=== PATIENT | male | born 1985 | race Caucasian/White ===

== ENCOUNTER 2017-11-07 00:17 | Inpatient (IN) | payer SELFPAY ==
[~2017-11-07] VITALS: Ht 180.3 cm; Wt 101.6 kg
--- NOTE | 2017-11-07 00:26 | PHYS DOC ---
Adult General HPI HPI Patient is a 32 year old male who presents with acute alcohol intoxication. History is limited secondary to patient's acute intoxication and EMS is the primary historian. [place] and then vomiting on himself. Upon arrival to the emergency department his GCS is 14, he is yelling, at times laughing, at times not cooperative. Review of Systems Review of Systems Unable to complete review of systems due to patient intoxication. Current Medications Current Medications Current Medications Medications (Trade) Dose Ordered Sig/Francisco Start Time Stop Time Status Last Admin Dose Admin Sodium Chloride 1,000 ml @ 1,000 mls/hr 1X ONCE 11/07/17 00:45 11/07/17 02:40 DC 11/07/17 00:45 1,000 MLS/HR Ziprasidone (Geodon Im) 10 mg 1X ONCE 11/07/17 01:00 11/07/17 01:01 DC 11/07/17 01:30 10 MG Allergies Allergies Allergies Coded Allergies Type Severity Reaction Last Updated Verified haloperidol Allergy Intermediate jaw locks up 11/07/17 No Physical Exam Physical Exam Constitutional: Well developed, well nourished, no acute distress, non-toxic appearance. [] HENT: Normocephalic, atraumatic, bilateral external ears normal, oropharynx moist, no oral exudates, nose normal. [] Eyes: PERRLA, EOMI, conjunctiva normal, no discharge. [] Neck: Normal range of motion, no tenderness, supple, no stridor. [] Cardiovascular:Heart rate regular rhythm, no murmur [] Lungs & Thorax: Bilateral breath sounds clear to auscultation [] Abdomen: Bowel sounds normal, soft, no tenderness, no masses, no pulsatile masses. [] Skin: Warm, dry, no erythema, no rash. [] Back: No tenderness, no CVA tenderness. [] Extremities: No tenderness, no cyanosis, no clubbing, ROM intact, no edema. [] Neurologic: Alert and oriented X 3, normal motor function, normal sensory function, no focal deficits noted. [] Psychologic: Affect normal, judgement normal, mood normal. [] Current Patient Data Vital Signs Vital Signs Date Time Temp Pulse Resp B/P (MAP) Pulse Ox O2 Delivery O2 Flow Rate FiO2 11/07/17 02:56 90 16 116/53 (74) 93 Room Air Lab Values Laboratory Tests Test 11/07/17 00:35 White Blood Count 16.0 x10^3/uL (4.0-11.0) H Red Blood Count 5.17 x10^6/uL (4.30-5.70) Hemoglobin 15.7 g/dL (13.0-17.5) Hematocrit 46.1 % (39.0-53.0) Mean Corpuscular Volume 89 fL (79-100) Mean Corpuscular Hemoglobin 30 pg (25-35) Mean Corpuscular Hemoglobin Concent 34 g/dL (31-37) Red Cell Distribution Width 13.1 % (11.5-14.5) Platelet Count 395 x10^3/uL (140-400) Neutrophils (%) (Auto) 58 % (31-73) Lymphocytes (%) (Auto) 30 % (24-48) Monocytes (%) (Auto) 7 % (0-9) Eosinophils (%) (Auto) 4 % (0-3) H Basophils (%) (Auto) 1 % (0-3) Neutrophils # (Auto) 9.3 x10^3uL (1.8-7.7) H Lymphocytes # (Auto) 4.7 x10^3/uL (1.0-4.8) Monocytes # (Auto) 1.2 x10^3/uL (0.0-1.1) H Eosinophils # (Auto) 0.7 x10^3/uL (0.0-0.7) Basophils # (Auto) 0.1 x10^3/uL (0.0-0.2) Segmented Neutrophils % 51 % (35-66) Band Neutrophils % 4 % (0-9) Lymphocytes % 39 % (24-48) Monocytes % 3 % (0-10) Eosinophils % 1 % (0-5) Myelocytes % 2 % (0-0) H Platelet Estimate Adequate (ADEQUATE) Sodium Level 139 mmol/L (136-145) Potassium Level 3.8 mmol/L (3.5-5.1) Chloride Level 101 mmol/L (98-107) Carbon Dioxide Level 12 mmol/L (21-32) L Anion Gap 26 (6-14) H Blood Urea Nitrogen 6 mg/dL (8-26) L Creatinine 1.1 mg/dL (0.7-1.3) Estimated GFR (Cockcroft-Gault) 77.6 BUN/Creatinine Ratio 5 (6-20) L Glucose Level 137 mg/dL (70-99) H Calcium Level 9.3 mg/dL (8.5-10.1) Total Bilirubin 0.3 mg/dL (0.2-1.0) Aspartate Amino Transferase (AST) 77 U/L (15-37) H Alanine Aminotransferase (ALT) 192 U/L (16-63) H Alkaline Phosphatase 99 U/L (46-116) Total Protein 9.0 g/dL (6.4-8.2) H Albumin 4.7 g/dL (3.4-5.0) Albumin/Globulin Ratio 1.1 (1.0-1.7) Acetaminophen Level < 2 mcg/ml (10-30) L Acetaminophen Last Dose Date Acetaminophen Last Dose Time Ethyl Alcohol Level 176 mg/dL (0-10) H Laboratory Tests 11/07/17 00:35 Laboratory Tests 11/07/17 00:35 EKG EKG [] Radiology/Procedures Radiology/Procedures [] Impressions: Acute alcohol intoxication Suicidal ideation Vomiting Altered mental status Course & Med Decision Making Course & Med Decision Making Pertinent Labs and Imaging studies reviewed. (See chart for details) 12:59 AM. Patient states that he is suicidal to nursing staff. Physician: Patient admitted to Dr. Barney's service Catarino Disclaimer Catarino Disclaimer This electronic medical record was generated, in whole or in part, using a voice recognition dictation system. Departure Departure Impression: Primary Impression: Acute alcohol intoxication Additional Impressions: Vomiting Altered mental status Suicidal ideations Disposition: ADMITTED INPATIENT Condition: STABLE Problem Qualifiers BROOKLYN REYES DO Nov 07, 2017 00:26
[2017-11-07] MEDS ORDERED: IV NORMAL SALINE 1000ML BAG 1,000 ML IV ONE ×2 (00:45→10:45)
[2017-11-07] MEDS ORDERED: ZIPRASIDONE IM 20 MG VIAL. IM ONE (01:00)
[2017-11-07 01:04] LABS: BASO # 0.1 x10^3/uL (0.0-0.2); BASO % 1 % (0-3); EOS # 0.7 x10^3/uL (0.0-0.7); EOS % 4 % (0-3); HEMATOCRIT 46.1 % (39.0-53.0); HEMOGLOBIN 15.7 g/dL (13.0-17.5); LYMPH # 4.7 x10^3/uL (1.0-4.8); LYMPH % 30 % (24-48); MEAN CORPUSCULAR HEMOGLOBIN 30 pg (25-35); MEAN CORPUSCULAR HGB CONC 34 g/dL (31-37); MEAN CORPUSCULAR VOLUME 89 fL (79-100); MONO # 1.2 x10^3/uL (0.0-1.1); MONO % 7 % (0-9); NEUT # 9.3 x10^3uL (1.8-7.7); NEUT % 58 % (31-73); PLATELET COUNT 395 x10^3/uL (140-400); RED BLOOD COUNT 5.17 x10^6/uL (4.30-5.70); RED CELL DISTRIBUTION WIDTH 13.1 % (11.5-14.5)
[2017-11-07 01:15] LABS: CALCIUM 9.3 mg/dL (8.5-10.1); CREATININE 1.1 mg/dL (0.7-1.3); GFR 77.6; POTASSIUM 3.8 mmol/L (3.5-5.1)
[2017-11-07 01:18] LABS: ETHANOL 176 mg/dL (0-10)
[2017-11-07 01:19] LABS: ACETAMIN < 2 mcg/ml (10-30)
[2017-11-07 01:20] LABS: ALBUMIN 4.7 g/dL (3.4-5.0); ALBUMIN/GLOBULIN RATIO 1.1 (1.0-1.7); TOTAL BILIRUBIN 0.3 mg/dL (0.2-1.0)
[2017-11-07 02:31] LABS: % BANDS 4 % (0-9); % EOS 1 % (0-5); % LYMPHS 39 % (24-48); % MONOS 3 % (0-10); % MYELOS 2 % (0-0); % SEGS 51 % (35-66); PLT ESTIMATE ADEQUATE (ADEQUATE)
[2017-11-07] MEDS ORDERED: IV RINGERS,LACTATED 1000ML 1,000 ML IV ONE (03:30)
[2017-11-07] MEDS ORDERED: ONDANSETRON PF 4 MG/2 ML VIAL. IV PRN ×2 (03:30→09:30)
[2017-11-07 04:30] VITALS: BP 127/53
[2017-11-07 07:00] VITALS: BP 122/70
[2017-11-07] MEDS ORDERED: IBUPROFEN 600 MG TABLET. PO PRN (09:30)
[2017-11-07] MEDS ORDERED: HALOPERIDOL LACTATE 5 MG/ML VIAL. IVP PRN (09:30)
[2017-11-07] MEDS ORDERED: CALCIUM CARBONATE 500 MG TAB.CHEW PO PRN (09:30)
[2017-11-07] MEDS ORDERED: chlordiazePOXIDE HCL 25 MG CAPSULE PO PRN (09:30)
[2017-11-07] MEDS ORDERED: HYDROcodone/APAP 5/325MG 1 TAB TABLET PO PRN (09:30)
[2017-11-07] MEDS ORDERED: MULTIVIT INFUSN,ADULT 4,VIT K 10 ML, THIAMINE 100 MG, FOLIC ACID 1 MG in IV NORMAL SALI... IV ONE (10:00)
--- NOTE | 2017-11-07 10:39 | PDOC1 ---
History and Physical Date of Admission Date of Admission DATE: 11/07/17 TIME: 10:33 Identification/Chief Complaint Chief Complaint Alcohol intoxication, suicidal ideation Source Source: Caregiver, Chart review, Patient History of Present Illness History of Present Illness 32-year-old male with history of PTSD per documentation, also suicidal ideation, last one was one week ago when he attempted to strangulate himself, also alcohol dependence, in an inpatient alcohol rehabilitation program at [facility]. IS actually scheduled to go inpatient right now at [address] order tomorrow, admitted because of etoh intoxication. AST elevated at 77, ALT elevated 137. Increased anion gap of 26, reactive leukocytosis 16 likely, shaking still, but no emesis. KEotnes on urine likely from etoh. Wants to go home and cleared by RADKALYN to meet his appointment later [address] [place] I am bolusing banana bag and some fluids to help with that gap acidosis. I am requesting him to sign the AMA because I am treating blindly the gap acidosis with no repeat labs later as he is in a [place]. He does not want to Miss his court order tmr either. HE has major depression, on unrecalled anti depressants he takes bID. Sitter at bedside Past Medical History Psych: Depression Past Surgical History Past Surgical History: No pertinent history Family History Family History: No Significant Social History Smoke: No ALCOHOL: heavy Drugs: None Current Problem List Problem List Problems Medical Problems: (1) Acute alcohol intoxication Status: Acute (2) Altered mental status Status: Acute (3) Suicidal ideations Status: Acute (4) Vomiting Status: Acute Current Medications Current Medications Current Medications Ziprasidone (Geodon Im) 10 mg 1X ONCE IM Last administered on 11/07/17at 01:30 ; Start 11/07/17 at 01:00; Stop 11/07/17 at 01:01; Status DC Sodium Chloride 1,000 ml @ 1,000 mls/hr 1X ONCE IV Last administered on at 00:45; Start 11/07/17 at 00:45; Stop 11/07/17 at 02:40; Status DC Ondansetron HCl (Zofran) 4 mg PRN Q8HRS PRN IV NAUSEA/VOMITING; Start 11/07/17 at 03:30; Stop 11/07/17 at 09:28; Status DC Ringer's Solution 1,000 ml @ 1,000 mls/hr 1X ONCE IV Last administered on 01/14at 03:32; Start 11/07/17 at 03:30; Stop 11/07/17 at 04:29; Status DC Ondansetron HCl (Zofran) 4 mg PRN Q6HRS PRN IV NAUSEA/VOMITING; Start 11/07/17 at 09:30 Ibuprofen (Motrin) 600 mg PRN Q6HRS PRN PO INFLAMMATION; Start 11/07/17 at 09: 30 Acetaminophen/ Hydrocodone Bitart (Lortab 5/325) 1 tab PRN Q4HRS PRN PO PAIN; Start 11/07/17 at 09:30 Chlordiazepoxide (Librium) 25 mg PRN Q6HRS PRN PO ANXIETY / AGITATION; Start at 09:30 Multivitamins 10 ml/Thiamine HCl 100 mg/Folic Acid 1 mg/Sodium Chloride 1,011.2 ml @ 1,000.088 mls/hr 1X ONCE IV Last administered on 11/07/17at 10:19; Start 11/07/17 at 10:00; Stop 11/07/17 at 11:00 Sodium Chloride 1,000 ml @ 125 mls/hr Q8H IV ; Start 11/07/17 at 11:00 Thiamine Mononitrate (Vitamin B-1) 100 mg DAILY PO ; Start 11/08/17 at 09:00 Folic Acid (Folic Acid) 1 mg DAILY PO ; Start 11/08/17 at 09:00 Multivitamins (Thera M Plus) 1 tab DAILY PO ; Start 11/08/17 at 09:00 Haloperidol Lactate (Haldol Inj) 5 mg PRN Q6HRS PRN IVP AGITATION; Start at 09:30; Status UNV Lorazepam (Ativan) 2 mg PRN Q4HRS PRN IV ANXIETY / AGITATION Last administered on 11/07/17at 10:21; Start 11/07/17 at 09:30 Calcium Carbonate/ Glycine (Tums) 500 mg PRN AFTMEALHC PRN PO INDIGESTION; Start 11/07/17 at 09:30 Allergies Allergies: Coded Allergies: haloperidol (Unverified Allergy, Intermediate, jaw locks up, 11/07/17) ROS Review of System A 14 point ROS was completed with the following noted as positive: Other systems reviewed and negative. \CONSTITUTIONAL: No fever or chills EYES: No recent changes SKIN: No rash or itching CARDIOVASCULAR: No chest pain, syncope, palpitations, or edema RESPIRATORY: No SOB or cough GASTROINTESTINAL: No nausea, vomiting or abdominal pain NEUROLOGICAL: No headaches or weakness ENDOCRINE: No cold or heat intolerance GENITOURINARY: No urgency or frequency of urination MUSCULOSKELETAL: No back pain or joint pain LYMPHATICS: No enlarged lymph nodes PSYCHIATRIC: No anxiety or depression Physical Exam General: Alert, Oriented X3, Cooperative, Other (rigidity, rocking back and forth in the bed with his upper trunk) HEENT: PERRLA Lungs: Clear to auscultation, Normal air movement Heart: S1S2, RRR, no thrills, no rubs, no gallops, no murmurs Cardiovascular: S1, S2 Abdomen: Normal bowel sounds, Soft, No tenderness, No hepatosplenomegaly, No masses Male Genitals Exam: normal genitalia, normal prostate Rectal Exam: not examined PELVIC: Nml ext genitalia Extremities: No clubbing, No cyanosis, No edema, Normal pulses, No tenderness/ swelling Skin: No rashes, No breakdown, No significant lesion Neuro: Normal gait, Normal speech, Strength at 5/5 X4 ext, Normal tone, Sensation intact, Cranial nerves 3-12 NL, Reflexes 2+ Psych/Mental Status: Mental status NL, Mood NL Vitals Vitals Vital Signs Date Time Temp Pulse Resp B/P (MAP) Pulse Ox O2 Delivery O2 Flow Rate FiO2 11/07/17 08:00 Room Air 11/07/17 07:00 97.9 89 18 122/70 (87) 96 97.9 Labs Labs Laboratory Tests Test 11/07/17 00:35 White Blood Count 16.0 x10^3/uL (4.0-11.0) Red Blood Count 5.17 x10^6/uL (4.30-5.70) Hemoglobin 15.7 g/dL (13.0-17.5) Hematocrit 46.1 % (39.0-53.0) Mean Corpuscular Volume 89 fL (79-100) Mean Corpuscular Hemoglobin 30 pg (25-35) Mean Corpuscular Hemoglobin Concent 34 g/dL (31-37) Red Cell Distribution Width 13.1 % (11.5-14.5) Platelet Count 395 x10^3/uL (140-400) Neutrophils (%) (Auto) 58 % (31-73) Lymphocytes (%) (Auto) 30 % (24-48) Monocytes (%) (Auto) 7 % (0-9) Eosinophils (%) (Auto) 4 % (0-3) Basophils (%) (Auto) 1 % (0-3) Neutrophils # (Auto) 9.3 x10^3uL (1.8-7.7) Lymphocytes # (Auto) 4.7 x10^3/uL (1.0-4.8) Monocytes # (Auto) 1.2 x10^3/uL (0.0-1.1) Eosinophils # (Auto) 0.7 x10^3/uL (0.0-0.7) Basophils # (Auto) 0.1 x10^3/uL (0.0-0.2) Segmented Neutrophils % 51 % (35-66) Band Neutrophils % 4 % (0-9) Lymphocytes % 39 % (24-48) Monocytes % 3 % (0-10) Eosinophils % 1 % (0-5) Myelocytes % 2 % (0-0) Platelet Estimate Adequate (ADEQUATE) Sodium Level 139 mmol/L (136-145) Potassium Level 3.8 mmol/L (3.5-5.1) Chloride Level 101 mmol/L (98-107) Carbon Dioxide Level 12 mmol/L (21-32) Anion Gap 26 (6-14) Blood Urea Nitrogen 6 mg/dL (8-26) Creatinine 1.1 mg/dL (0.7-1.3) Estimated GFR (Cockcroft-Gault) 77.6 BUN/Creatinine Ratio 5 (6-20) Glucose Level 137 mg/dL (70-99) Calcium Level 9.3 mg/dL (8.5-10.1) Total Bilirubin 0.3 mg/dL (0.2-1.0) Aspartate Amino Transf (AST/SGOT) 77 U/L (15-37) Alanine Aminotransferase (ALT/SGPT) 192 U/L (16-63) Alkaline Phosphatase 99 U/L (46-116) Total Protein 9.0 g/dL (6.4-8.2) Albumin 4.7 g/dL (3.4-5.0) Albumin/Globulin Ratio 1.1 (1.0-1.7) Acetaminophen Level < 2 mcg/ml (10-30) Acetaminophen Last Dose Date Acetaminophen Last Dose Time Ethyl Alcohol Level 176 mg/dL (0-10) Laboratory Tests Test 11/07/17 00:35 White Blood Count 16.0 x10^3/uL (4.0-11.0) Red Blood Count 5.17 x10^6/uL (4.30-5.70) Hemoglobin 15.7 g/dL (13.0-17.5) Hematocrit 46.1 % (39.0-53.0) Mean Corpuscular Volume 89 fL (79-100) Mean Corpuscular Hemoglobin 30 pg (25-35) Mean Corpuscular Hemoglobin Concent 34 g/dL (31-37) Red Cell Distribution Width 13.1 % (11.5-14.5) Platelet Count 395 x10^3/uL (140-400) Neutrophils (%) (Auto) 58 % (31-73) Lymphocytes (%) (Auto) 30 % (24-48) Monocytes (%) (Auto) 7 % (0-9) Eosinophils (%) (Auto) 4 % (0-3) Basophils (%) (Auto) 1 % (0-3) Neutrophils # (Auto) 9.3 x10^3uL (1.8-7.7) Lymphocytes # (Auto) 4.7 x10^3/uL (1.0-4.8) Monocytes # (Auto) 1.2 x10^3/uL (0.0-1.1) Eosinophils # (Auto) 0.7 x10^3/uL (0.0-0.7) Basophils # (Auto) 0.1 x10^3/uL (0.0-0.2) Segmented Neutrophils % 51 % (35-66) Band Neutrophils % 4 % (0-9) Lymphocytes % 39 % (24-48) Monocytes % 3 % (0-10) Eosinophils % 1 % (0-5) Myelocytes % 2 % (0-0) Platelet Estimate Adequate (ADEQUATE) Sodium Level 139 mmol/L (136-145) Potassium Level 3.8 mmol/L (3.5-5.1) Chloride Level 101 mmol/L (98-107) Carbon Dioxide Level 12 mmol/L (21-32) Anion Gap 26 (6-14) Blood Urea Nitrogen 6 mg/dL (8-26) Creatinine 1.1 mg/dL (0.7-1.3) Estimated GFR (Cockcroft-Gault) 77.6 BUN/Creatinine Ratio 5 (6-20) Glucose Level 137 mg/dL (70-99) Calcium Level 9.3 mg/dL (8.5-10.1) Total Bilirubin 0.3 mg/dL (0.2-1.0) Aspartate Amino Transf (AST/SGOT) 77 U/L (15-37) Alanine Aminotransferase (ALT/SGPT) 192 U/L (16-63) Alkaline Phosphatase 99 U/L (46-116) Total Protein 9.0 g/dL (6.4-8.2) Albumin 4.7 g/dL (3.4-5.0) Albumin/Globulin Ratio 1.1 (1.0-1.7) Acetaminophen Level < 2 mcg/ml (10-30) Acetaminophen Last Dose Date Acetaminophen Last Dose Time Ethyl Alcohol Level 176 mg/dL (0-10) VTE Prophylaxis Ordered VTE Prophylaxis Devices: Yes VTE Pharmacological Prophylaxi: Yes Assessment/Plan Assessment/Plan Alcohol dependence Gap metabolic acidosis likely alcohol-related Elevated AST ALT in the background of alcoholism Reactive leukocytosis likely Severe major depression with past suicide attempt Suicidal ideation PLAN: I did start banana bag bolus, normal saline bolus, CIWA I started But unfortunately patient has to leave soon, I did request him to sign AMA Rounded and discussed with RN at bedside Discussed with behavioral health case manager school traffic supervisor ADRIENNE GREENWOOD MD Nov 07, 2017 10:38
[2017-11-07] MEDS ORDERED: IV NORMAL SALINE 1000ML BAG 1,000 ML IV SCH (11:00)
[2017-11-08] MEDS ORDERED: THIAMINE 100 MG TABLET. PO SCH (09:00)
[2017-11-08] MEDS ORDERED: MULTIVITAMIN with MINERAL TABLET. PO SCH (09:00)
[2017-11-08] MEDS ORDERED: FOLIC ACID 1 MG TABLET. PO SCH (09:00)
== END 2017-11-07 12:25 | disposition left against medical advice (07) | DRG 894 ==
LOC: ER 00:17 → 6 SOUTH 03:11
PROVIDERS: ADMIT Internal Medicine; ATTEND Internal Medicine
DX: F10.229 Alcohol dependence with intoxication, unspecified (principal); E87.2 Acidosis; R45.851 Suicidal ideations; F43.10 Post-traumatic stress disorder, unspecified; D72.828 Other elevated white blood cell count; Z53.21 Procedure and treatment not carried out due to patient leaving prior to being seen by health care provider; F32.9 Major depressive disorder, single episode, unspecified; Z88.8 Allergy status to other drugs, medicaments and biological substances; Z91.5 Personal history of self-harm
CPT/HCPCS: 36415; 80053; 85007; 85025; 96360; 96361; 96372; G0480; G6039; J2060; J3486; J7030; J7120; 99285-25